=== PATIENT | female | born 1980 | race Caucasian/White ===

== ENCOUNTER → 2016-11-22 08:23 | Outpatient (CLI) | payer MEDICAID | LOC: D.MRI 08:23 | DX: R20.9 Unspecified disturbances of skin sensation (principal); R51 Headache ==

== ENCOUNTER 2016-12-07 08:21 | Emergency (ER) | payer MEDICAID | END 2016-12-07 10:15 | disposition home or self-care (01) | LOC: D.ER 08:21 | DX: M54.5 Low back pain (principal); G89.29 Other chronic pain; F17.200 Nicotine dependence, unspecified, uncomplicated ==

== ENCOUNTER 2017-03-16 20:02 | Emergency (ER) | payer MEDICAID ==
[2017-03-16 20:55] LABS: BASOPHILS 0.3 % (0-2); HEMATOCRIT 46.7 % (36.0-48.0); HEMOGLOBIN 15.9 g/dL (12-16); IMMATURE GRANULOCYTES 0.5 % (0-5); LYMPHOCYTES 26.3 % (15-50); MCH 33.3 pg (26.0-34.0); MCV 97.7 fL (80.0-100.0); MEAN PLATELET VOLUME 9.7 fL (7.4-10.4); MONOCYTES 6.6 % (2-11); NEUTROPHILS 65.3 % (40-80); PLATELET COUNT 230 10x3/uL (130-400); RBC 4.78 10x6/uL (4.00-5.40); RDW 13.4 % (11.5-14.5); WBC 11.2 10x3/uL (4.8-10.8)
[2017-03-16 21:11] LABS: ALBUMIN 3.2 g/dL (3.4-5.0); ALKALINE PHOSPHATASE 111 U/L (46-116); ALT (SGPT) 40 U/L (10-68); BILIRUBIN - TOTAL 0.16 mg/dL (0.2-1.3); CALC OSMOLALITY 266 mosm/kg (275-300); CALCIUM 8.7 mg/dL (8.5-10.1); CARBON DIOXIDE 30.2 mmol/L (21.0-32.0); CHLORIDE - SERUM 99 mmol/L (98-107); CREATININE - SERUM 0.8 mg/dL (0.6-1.3); GLUCOSE 119 mg/dL (74-106); POTASSIUM - SERUM 3.4 mmol/L (3.5-5.1); PROTEIN - SERUM 7.2 g/dL (6.4-8.2); SODIUM 134 mmol/L (136-145); UREA NITROGEN 8 mg/dL (7-18); eGFR NON AFRICAN AMERICAN 86 mL/min (90-120)
[2017-03-16 21:22] LABS: CKMB 0.5 U/L (0.0-3.6); CREATINE KINASE 55 UL (21-215)
[2017-03-16 21:23] LABS: TROPONIN-I < 0.017 ng/mL (0.000-0.060)
== END 2017-03-16 23:15 | disposition home or self-care (01) ==
LOC: D.ER 20:02
PROVIDERS: Emergency Medicine
DX: R07.89 Other chest pain (principal); E87.6 Hypokalemia; F41.9 Anxiety disorder, unspecified; F17.200 Nicotine dependence, unspecified, uncomplicated; R00.0 Tachycardia, unspecified; I49.3 Ventricular premature depolarization

== ENCOUNTER 2017-06-13 01:48 | Emergency (ER) | payer MEDICAID ==
[2017-06-13 02:20] LABS: APPEARANCE CLEAR (CLEAR); BILIRUBIN NEGATIVE (NEGATIVE); COLOR YELLOW (YELLOW); GLUCOSE NEGATIVE (NEGATIVE); KETONE NEGATIVE (NEGATIVE); LEUKOCYTE ESTERASE NEGATIVE (NEGATIVE); NITRITE NEGATIVE (NEGATIVE); PROTEIN NEGATIVE (NEGATIVE); UROBILINOGEN NORMAL (NORMAL)
[2017-06-13 06:04] LABS: HCG URINE NEGATIVE (NEGATIVE)
== END 2017-06-13 03:15 | disposition home or self-care (01) ==
LOC: D.ER 01:48
PROVIDERS: Family Medicine
DX: M54.5 Low back pain (principal); M54.30 Sciatica, unspecified side; F41.9 Anxiety disorder, unspecified

== ENCOUNTER → 2017-06-14 07:57 | Outpatient (CLI) | payer MEDICAID | END | disposition home or self-care (01) | LOC: D.NM 07:57 | DX: I20.9 Angina pectoris, unspecified (principal) ==

== ENCOUNTER → 2017-08-04 10:02 | Outpatient (CLI) | payer MEDICAID | END | disposition home or self-care (01) | LOC: D.MRI 07-21 11:00 | DX: M54.16 Radiculopathy, lumbar region (principal) ==

== ENCOUNTER → 2018-04-17 10:30 | Outpatient (CLI) | payer MEDICAID ==
[~2018-04-17 10:30] MED LIST: K-TAB10 MEQ PO; SYMBICORT 16010.2 GM INH
== END | disposition home or self-care (01) ==
LOC: D.RAD 10:30
DX: R10.9 Unspecified abdominal pain (principal)

== ENCOUNTER 2018-04-19 16:49 | Emergency (ER) | payer MEDICAID ==
[~2018-04-19] VITALS: Ht 160 cm; Wt 77.3 kg
[2018-04-19 17:24] VITALS: Ht 160 cm; Wt 77.3 kg
[2018-04-19] MEDS ORDERED: SYMBICORT 16010.2 GM INH (18:41)
[2018-04-19] MEDS ORDERED: K-TAB10 MEQ PO (18:41)
[2018-04-19 18:58] LABS: ALBUMIN 3.3 g/dL (3.4-5.0); ALKALINE PHOSPHATASE 87 U/L (46-116); ALT (SGPT) 14 U/L (10-68); BILIRUBIN - TOTAL 0.16 mg/dL (0.2-1.3); CALC OSMOLALITY 270 mosm/kg (275-300); CALCIUM 9.2 mg/dL (8.5-10.1); CARBON DIOXIDE 34.2 mmol/L (21.0-32.0); CHLORIDE - SERUM 98 mmol/L (98-107); CREATININE - SERUM 0.8 mg/dL (0.6-1.3); GLUCOSE 101 mg/dL (74-106); PROTEIN - SERUM 7.5 g/dL (6.4-8.2); SODIUM 137 mmol/L (136-145); UREA NITROGEN 3 mg/dL (7-18); eGFR NON AFRICAN AMERICAN 86 mL/min (90-120)
[2018-04-19 19:00] VITALS: BP 113/75
[2018-04-19 19:05] LABS: POTASSIUM - SERUM 2.6 mmol/L (3.5-5.1)
== END 2018-04-19 18:58 | disposition home or self-care (01) ==
LOC: D.ER 16:49
PROVIDERS: Family Medicine
DX: E87.6 Hypokalemia (principal); R25.2 Cramp and spasm; F17.200 Nicotine dependence, unspecified, uncomplicated; I10 Essential (primary) hypertension

== ENCOUNTER 2018-04-19 16:52 | Emergency (ER) | payer MEDICAID ==
[2018-04-19] MEDS ORDERED: K-TAB10 MEQ PO (18:41)
[2018-04-19] MEDS ORDERED: SYMBICORT 16010.2 GM INH (18:41)
== END 2018-04-19 17:00 | disposition home or self-care (01) ==
LOC: D.ER 16:52
DX: E87.6 Hypokalemia (principal); R25.2 Cramp and spasm; F17.200 Nicotine dependence, unspecified, uncomplicated

== ENCOUNTER 2019-01-15 14:16 | Emergency (ER) | payer MEDICAID ==
[~2019-01-15] VITALS: Ht 160 cm; Wt 90.9 kg
[2019-01-15 14:20] VITALS: Ht 160 cm; Wt 90.9 kg
[2019-01-15] MEDS ORDERED: LIORESAL 10 MG10 MG PO (14:28)
[2019-01-15] MEDS ORDERED: NEURONTIN600 MG PO (14:28)
[2019-01-15] MEDS ORDERED: KLONOPIN1 MG PO (14:29)
[2019-01-15] MEDS ORDERED: [UNRECOGNIZED DRUG - OTHER] PO (14:31)
[2019-01-15] MEDS ORDERED: VOLTAREN100 GM TOPICAL (14:32)
[2019-01-15] MEDS ORDERED: REMERON15 MG PO (14:32)
[2019-01-15] MEDS ORDERED: OXYCODONE HCL10 MG PO (14:33)
[2019-01-15] MEDS ORDERED: IMITREX50 MG (14:35)
[2019-01-15] MEDS ORDERED: VIBRAMYCIN 100100 MG PO (16:35)
[2019-01-15] MEDS ORDERED: HYDROCODON-ACE1 EAC2 PO (16:35)
[2019-01-15 17:26] VITALS: BP 101/60
== END 2019-01-15 17:27 | disposition home or self-care (01) ==
LOC: D.ER 14:16
DX: L05.91 Pilonidal cyst without abscess (principal)

== ENCOUNTER 2019-02-14 08:31 | Day surgery (SDC) | payer MEDICAID ==
[~2019-02-14] VITALS: Ht 160 cm; Wt 97.5 kg
--- NOTE | ~2019-02-14 | OP ---
PATIENT NAME: ROBERT PERALES MEDICAL RECORD: [id number] :82 LOCATION:D.OPS ADMISSION DATE: SURGEON: JANE MONTEZ MD DATE OF OPERATION: 02/14/2019 PREOPERATIVE DIAGNOSES: 1. Pilonidal cyst with abscess. 2. Hypertension. 3. Hypercholesterolemia. 4. Tobacco dependence syndrome. 5. Coronary artery disease. POSTOPERATIVE DIAGNOSES: 1. Pilonidal cyst with abscess. 2. Hypertension. 3. Hypercholesterolemia. 4. Tobacco dependence syndrome. 5. Coronary artery disease. PROCEDURE: Pilonidal cystectomy. SURGEON: Jane Montez MD REPORT OF PROCEDURE: The patient was placed in the jackknife prone position and the perianal region was prepped and draped in sterile fashion. The patient had a wound on the right side of the buttocks near the gluteal crease. I tried to probe this area and it was very firm with no signs of any abscess cavity or purulence. We made an ovoid incision around this area of inflammatory tissue and carried it down through the subcutaneous fatty tissue towards the sacrum. We completely excised any inflammatory tissue that was present. This was then sent off for permanent specimen. The wound bed was irrigated out with peroxide and saline solution. Any bleeding from the liver bed was then treated with electrocautery. We reapproximated the subcutaneous tissues with multiple interrupted 3-0 Vicryls. The skin was then closed with vertical mattress 2-0 nylons. COMPLICATIONS: None. CONDITION: Stable. ANESTHESIA: General endotracheal and local. BLOOD LOSS: Minimal. TRANSINT:[id number] Voice Confirmation ID: [id number] DOCUMENT ID: [id number] JANE MONTEZ MD CC: ABENA DEMARCO [id number] DICTATION DATE: 02/14/19 1207 BUTTON PUSHER: 02/14/19 1239 [id number] [place] [address]
[~2019-02-14 08:31] MED LIST changes: +HYDROCODON-ACE1 EAC2 PO; +IMITREX50 MG; +KENALOG 0.1 % 115 GM; +KLONOPIN1 MG PO; +LIORESAL 10 MG10 MG PO; +LISINOPRIL-HCT1 EAC8 PO; +NEURONTIN600 MG PO; +OXYCODONE HCL10 MG PO; +PERCOCET 10-321 EAC1 PO; +REMERON15 MG PO; +TEMAZEPAM30 MG PO; +VIBRAMYCIN 100100 MG PO; +VOLTAREN100 GM TOPICAL
[2019-02-14 08:51] LABS: BASOPHILS 0.4 % (0-2); EOSINOPHILS 2.3 % (0-7); HEMATOCRIT 43.7 % (36.0-48.0); HEMOGLOBIN 15.3 g/dL (12-16); IMMATURE GRANULOCYTES 0.5 % (0-5); LYMPHOCYTES 24.4 % (15-50); MCH 33.3 pg (26.0-34.0); MONOCYTES 6.5 % (2-11); NEUTROPHILS 65.9 % (40-80); PLATELET COUNT 256 10x3/uL (130-400); RDW 13.6 % (11.5-14.5); WBC 9.2 10x3/uL (4.8-10.8)
[2019-02-14 09:01] LABS: ANION GAP 16.8 mmol/L (8-16); CALCIUM 8.3 mg/dL (8.5-10.1); CARBON DIOXIDE 21.3 mmol/L (21.0-32.0); POTASSIUM - SERUM 4.1 mmol/L (3.5-5.1)
[2019-02-14 09:29] LABS: HCG URINE NEGATIVE (NEGATIVE)
[2019-02-14] MEDS ORDERED: VALIUM5 MG PO (09:36)
[2019-02-14 09:49] VITALS: BP 91/57; Ht 160 cm; Wt 97.5 kg
[2019-02-14] MEDS ORDERED: IMODIUM2 MG PO (10:17)
[2019-02-14] MEDS ORDERED: DILAUDID2 MG PO (11:58)
--- NOTE | 2019-02-14 14:05 | NUR ---
PATIENT STATES SHE GOT UP TO BATHROOM ON HER OWN AND VOIDED LARGE AMOUNT IN TOILET WITHOUT DIFFICULTY, STATES AMBULATED WITHOUT UNSTEADINESS. LEFT FOREARM PIV DC'D WITH TIP INTACT. DISCHARGE INSTRUCTIONS REVIEWED WITH PATIENT, PATIENT DRESSING IN PERSONAL CLOTHING INDEPENDENTLY
== END 2019-02-14 14:18 | disposition home or self-care (01) ==
LOC: D.OPS 08:31 → D.PAN 10:30 → D.OPS 10:30
PROVIDERS: ATTEND Surgery
DX: L05.01 Pilonidal cyst with abscess (principal); I10 Essential (primary) hypertension; E78.00 Pure hypercholesterolemia, unspecified; F17.200 Nicotine dependence, unspecified, uncomplicated; I25.10 Atherosclerotic heart disease of native coronary artery without angina pectoris; Z01.812 Encounter for preprocedural laboratory examination

== ENCOUNTER → 2019-05-22 12:20 | Outpatient (CLI) | payer MEDICAID ==
[2019-02-14 09:49] VITALS: BMI 38.1
[~2019-05-22 12:20] MED LIST changes: +DILAUDID2 MG PO; +IMODIUM2 MG PO; +VALIUM5 MG PO
== END | disposition home or self-care (01) ==
LOC: D.US 12:20
PROVIDERS: ATTEND Nurse Practitioner Women's Health
DX: R10.2 Pelvic and perineal pain (principal)

== ENCOUNTER → 2019-07-23 12:51 | Outpatient (CLI) | payer MEDICAID ==
[2019-02-14 09:49] VITALS: BMI 38.1
== END | disposition home or self-care (01) ==
LOC: D.US 12:51
PROVIDERS: ATTEND Nurse Practitioner Women's Health
DX: N83.202 Unspecified ovarian cyst, left side (principal)

== ENCOUNTER 2019-09-25 15:17 | Emergency (ER) | payer MEDICAID ==
[~2019-09-25] VITALS: Ht 160 cm; Wt 105.9 kg
[2019-09-25 15:44] VITALS: BP 90/52; Ht 160 cm; Wt 105.9 kg
== END 2019-09-25 19:07 | disposition left against medical advice (07) ==
LOC: D.ER 15:17
DX: G43.909 Migraine, unspecified, not intractable, without status migrainosus (principal); Z53.21 Procedure and treatment not carried out due to patient leaving prior to being seen by health care provider

== ENCOUNTER → 2019-11-29 09:41 | Outpatient (CLI) | payer MEDICAID ==
[2019-09-25 15:44] VITALS: BMI 41.3
== END | disposition home or self-care (01) ==
LOC: D.CT 11-22 14:00
PROVIDERS: ATTEND Pain Medicine Interventional Pain Medicine
DX: M54.16 Radiculopathy, lumbar region (principal); M47.892 Other spondylosis, cervical region; M46.87 Other specified inflammatory spondylopathies, lumbosacral region; M54.2 Cervicalgia; Z79.891 Long term (current) use of opiate analgesic; M47.27 Other spondylosis with radiculopathy, lumbosacral region; G89.4 Chronic pain syndrome

== ENCOUNTER → 2020-01-16 09:21 | Outpatient (CLI) | payer MEDICAID ==
[2019-09-25 15:44] VITALS: BMI 41.3
== END | disposition home or self-care (01) ==
LOC: D.RT 09:21
PROVIDERS: ATTEND Family Medicine
DX: R06.00 Dyspnea, unspecified (principal)